=== PATIENT | female | born 1950 | race Caucasian/White ===

== ENCOUNTER 2017-03-21 10:48 | Day surgery (SDC) | payer BC ==
[2017-03-17 11:02] VITALS: BMI 20.1
[2017-03-21] MEDS ORDERED: PROPOFOL 20 ML ONE (11:27)
[2017-03-21 12:51] VITALS: TEMP 98.1
[2017-03-21 13:09] VITALS: BP 128/58; PULSE 67
--- NOTE | 2017-03-24 16:55 | PATH ---
Surgical Pathology Report Patient Name: EPIFANOI PETTY [facility]. Rec. #: [id number] /Age/Gender: 1950 (Age: 66) / F Account: [id number] Location: [facility]-ENDOSCOPY Taken: 03/21/2017 Received: 03/21/2017 Reported: 03/24/2017 Physicians: Pablo Pires M.D. Specimen(s) Received A: BX DUODENUM B: BX ANTRUM Clinical History GERD Gastritis Final Diagnosis A. DUODENUM, BIOPSY: DUODENAL MUCOSA WITH NO PATHOLOGIC FINDINGS. B. ANTRUM, BIOPSY: MODERATE CHRONIC GASTRITIS WITH INTESTINAL METAPLASIA. IMMUNOSTAIN IS NEGATIVE FOR H PYLORI ORGANISMS. Electronically Signed Annemarie Steel M.D. Gross Description A. Received in formalin, labeled "duodenum" is a giordano, irregular portion of soft tissue measuring 0.4 cm. in greatest dimension. The specimen is submitted in toto in one cassette. B. Received in formalin, labeled "antrum" are 2 giordano, irregular portions of soft tissue measuring 0.4 and 0.5 cm. in greatest dimension. The specimens are submitted in toto in one cassette. 03/23/2017 saudi03/23/2017
== END 2017-03-21 13:40 | disposition home or self-care (01) ==
LOC: FASU-ENDO 10:48
PROVIDERS: ATTEND Internal Medicine Gastroenterology
PROC: 0DB98ZX Excision of Duodenum, Via Natural or Artificial Opening Endoscopic, Diagnostic (ICD-10-PCS; principal; 2017-03-21 12:00)
PROC: 0DB68ZX Excision of Stomach, Via Natural or Artificial Opening Endoscopic, Diagnostic (ICD-10-PCS; 2017-03-21 12:00)
DX: K29.50 Unspecified chronic gastritis without bleeding (principal)
CPT/HCPCS: 88305-TC; 88342-TC

== ENCOUNTER 2020-03-09 20:09 | Emergency (ER) | payer BC ==
[2020-03-09 20:13] VITALS: BP 154/63; PULSE 64; TEMP 97.8; BMI 21.9
[2020-03-09] MEDS ORDERED: ACETAMINOPHEN 325 MG TABLET (FP) ONE (21:12)
[2020-03-09] MEDS ORDERED: ACETAMINOPHEN 500 MG TABLET (FP) PO ONE (21:13)
--- NOTE | 2020-03-09 21:13 | PDOC ---
Documentation entered by Mane Fang SCRIBE, acting as scribe for Radha Rivera MD. Radha Rivera MD: This documentation has been prepared by the Leoncio corona Angel, SCRIBE, under my direction and personally reviewed by me in its entirety. I confirm that the documentation accurately reflects all work, treatment, procedures, and medical decision making performed by me. History of Present Illness - General Chief Complaint: Injury Stated Complaint: right ankle injury History Source: Patient Exam Limitations: No Limitations - History of Present Illness Initial Comments: 03/09/20 20:26 The patient is a 69 year old female who presents to the ED with a swollen ankle after a fall today. The patient states she tripped on a step and twisted her right ankle. The patient states she is able to bear weight and walk on it. Patient denies any previous injuries to her right ankle or any other complaints. Assessment and plan: This is a 69-year-old female who comes in complaining of twisted her ankle. Ankle is moderately swollen. X-rays were done that were read by me showing a bimalleolar fracture with some mild disruption of the mortise. Neurovascular is intact. Patient was put in a sugar tong splint using OCL material and patient was referred to an orthopedist. Past History - Medical History Allergies/Adverse Reactions: Allergies Allergy/AdvReac Type Severity Reaction Status Date / Time No Known Drug Allergies Allergy Verified 03/17/17 11:02 Home Medications: Ambulatory Orders Calcium Carbonate/Vitamin D3 [Calcium 600 + Vit D 800 Tab] 1 each PO DAILY 03/12/16 Multivitamins [Tab-A-Vit -] 1 tab PO DAILY 03/12/16 Ranitidine HCl [Zantac] 150 mg PO PRN PRN 03/17/17 Anemia: No Asthma: No Cancer: No Cardiac Disorders: No CVA: No COPD: No CHF: No Dementia: No Diabetes: No GI Disorders: Yes (OCCASIONAL ACID REFLUX) Disorders: No HTN: No Hypercholesterolemia: No Liver Disease: No Seizures: No Thyroid Disease: No - Surgical History Abdominal Surgery: Yes (OPEN A/P) Appendectomy: Yes (1968- OPEN) Cardiac Surgery: No Cholecystectomy: No Lung Surgery: No Neurologic Surgery: No Orthopedic Surgery: Yes (RIGHT KNEE SURGERY 1989) - Psycho-Social/Smoking History Smoking History: Never smoked Have you smoked in the past 12 months: No Information on smoking cessation initiated: No - Substance Abuse Hx (Audit-C & DAST Scrn) How often the patient has a drink containing alcohol: Monthly or less Number of drinks the patient has on a typical day: 1 or 2 How often the patient has six or more drinks on one occasion: Never Score: In Men: 4 or > Positive; In Women: 3 or > Positive: 1 Screen Result (Pos requires Nsg. Audit-10AR): Negative In the last yr the pt used illegal drug/Rx for NonMed reason: No Score: Yes response is considered Positive: 0 Screen Result (Positive result requires Nsg. DAST-10): Negative Review of Systems - Review of Systems Able to Perform ROS?: Yes Comments:: 03/09/20 20:27 General: No fevers or chills, no weakness, no weight loss HEENT: No change in vision. No sore throat. No ear pain CardioVascular: No chest pain or shortness of breath Respiratory:No cough, or wheezing. Gastrointestinal: no nausea, vomiting, diarrhea or constipation, No rectal bleeding Genitourinary: No dysuria, hematuria, or frequency Musculoskeletal: +RLE swelling/tenderness. Neurologic: No headache, vertigo, dizziness or loss of consciousness Psychiatric: nor depression Skin: No rashes or easy bruising Endocrine: no increased thirst or abnormal weight change Allergic: no skin or latex allergy All other systems reviewed and normal *Physical Exam - Vital Signs Last Vital Signs Temp Pulse Resp BP Pulse Ox 97.8 F 64 18 154/63 98 03/09/20 20:10 03/09/20 20:10 03/09/20 20:10 03/09/20 20:10 03/09/20 20:10 - Physical Exam 03/09/20 20:29 GENERAL: The patient is awake, alert, and fully oriented, in no acute distress. HEAD: Normal with no signs of trauma. EYES: Pupils equal, round and reactive to light, extraocular movements intact, sclera anicteric, conjunctiva clear. EXTREMITIES: +Moderate swelling of the lateral malleolus of the right ankle. No tenderness on palpation to the base of the 5 metatarsal. Neurovascular intact. NEUROLOGICAL: Normal speech, normal gait. PSYCH: Normal mood, normal affect. SKIN: Warm, Dry, normal turgor, no rashes or lesions noted. Discharge - Discharge Information Problems reviewed: Yes Clinical Impression/Diagnosis: Bimalleolar fracture of right ankle Condition: Stable Disposition: HOME - Admission No - Follow up/Referral Referrals: Garfield Pickens MD [Staff Physician] - - Patient Discharge Instructions Additional Instructions: Call Dr. Pickens in the morning and get an appointment to follow-up let him know that you were in the ER and have a bimalleolar fracture of the ankle. Tylenol or Motrin as needed for pain. Wear the splint do not take it off and use your crutches no weightbearing until you have seen the orthopedist Return to the emergency department immediately with ANY new, persistent or worsening symptoms. Continue any medications as previously prescribed by your physician. You should follow up with your primary doctor as soon as possible regarding today's emergency department visit. . Please make sure your doctor reviews the results of your emergency evaluation. Thank you for coming to the Emergency Department today for your care. It was a pleasure to see you today. Please note that your evaluation is INCOMPLETE until you follow-up with your doctor. - Post Discharge Activity
== END 2020-03-09 21:23 | disposition home or self-care (01) ==
LOC: FER 20:09
DX: S82.841A Displaced bimalleolar fracture of right lower leg, initial encounter for closed fracture (principal)
CPT/HCPCS: 73610-TC-RT-FY; 99283-25

== ENCOUNTER 2020-03-24 05:59 | Day surgery (SDC) | payer BC ==
[2020-03-21 13:37] VITALS: BMI 21.5
[2020-03-24] MEDS ORDERED: ROPIVACAINE HCL 0.5% 30ML VIAL ONE (07:20)
[2020-03-24] MEDS ORDERED: MIDAZOLAM HCL 2 MG/2 ML SINGLE DOSE VIAL ONE ×2 (07:20→08:10)
--- NOTE | 2020-03-24 07:48 | OP ---
Operative Note - Note: Operative Date: 03/24/20 Pre-Operative Diagnosis: Right ankle fracture Operation: Right ankle ORIF Post-Operative Diagnosis: Same as Pre-op Surgeon: Garfield Pickens Transition Mgr Rn: aKssi Gonzalez Anesthesia: General Operative Report Dictated: Yes
[2020-03-24] MEDS ORDERED: PROPOFOL 20 ML ONE ×3 (08:10)
[2020-03-24] MEDS ORDERED: KETOROLAC TROMETHAMINE 30 MG/1 ML VIAL ONE (08:10)
[2020-03-24] MEDS ORDERED: ceFAZolin SODIUM 1 GM VIAL ONE (08:10)
[2020-03-24] MEDS ORDERED: ePHEDrine SULFATE 50 MG/1 ML AMPULE ONE (08:10)
[2020-03-24] MEDS ORDERED: ONDANSETRON 4 MG/2 ML VIAL ONE (08:10)
[2020-03-24] MEDS ORDERED: DEXAMETHASONE SOD PHOSPHATE 4 MG/1 ML VIAL ONE (08:10)
[2020-03-24] MEDS ORDERED: SUCCINYLCHOLINE CHLORIDE 200 MG/10 ML SYRINGE ONE (08:10)
[2020-03-24] MEDS ORDERED: TRANEXAMIC ACID 1000 MG/10 ML VIAL ONE (09:36)
[2020-03-24] MEDS ORDERED: ONDANSETRON 4 MG/2 ML VIAL IVPUSH PRN (10:31)
[2020-03-24] MEDS ORDERED: PROMETHAZINE HCL 25 MG/1 ML VIAL IVPUSH PRN (10:31)
[2020-03-24] MEDS ORDERED: oxyCODONE HCL 5 MG TABLET PO PRN ×2 (10:31)
[2020-03-24 17:21] VITALS: BP 132/62; PULSE 59; TEMP 98
--- NOTE | 2020-03-27 11:42 | OP ---
DATE OF OPERATION: 03/24/2020 PREOPERATIVE DIAGNOSIS: Right ankle bimalleolar fracture. POSTOPERATIVE DIAGNOSIS: Right ankle bimalleolar fracture. PROCEDURE: Right ankle open reduction, internal fixation. SURGEON: Garfield Pickens MD MACHINE SIZER: RICHARD Chahal, whose skillful assistance was necessary for the safe and timely performance of this procedure. Ms. Gonzalez was able to provide limb positioning, retraction, assist in fracture reduction as well as the insertion of orthopedic fixation hardware. ANESTHESIA: General. POSTOPERATIVE CONDITION: Stable. COMPLICATIONS: None. IMPLANTS: Arthrex distal fibula plate with 2.7-mm distal locking and 3.5-mm locking and nonlocking proximal screws. Medially a 4.0 cannulated screw was used . INDICATION: This is a pleasant 70-year-old female who had suffered a trip and fall. She was found to have a bimalleolar ankle fracture. She was initially treated with cast immobilization as she has significant fracture blisters on the lateral aspect of her ankle over her fracture site. Treatment options were discussed including nonoperative versus operative management. Given the unstable mortise, it was recommended that operative care be performed. Operative risks were reviewed including bleeding, infection, neurovascular injury, need for further surgery, postoperative pain and stiffness, nonunion, malunion, hardware failure or cut-out. We discussed medical issues such as heart attack, stroke, DVT, PE and . I addressed the use of perioperative antibiotics and DVT prophylaxis. I addressed all the patient's questions and concerns. She voiced understanding and elected to proceed. PROCEDURE: Patient was brought to the operating room, where anesthesia was administered. She had previously been given the preoperative block in the holding area. The patient was then prepped and draped in the usual sterile fashion. Preoperative dose of antibiotics was given, and the usual timeout procedure was performed. It should be noted that the blisters had self-drained by the time of the procedure. An incision was now planned out over the distal fibula. The limb was exsanguinated. Tourniquet was inflated to 250 mmHg. Incision was now carried down through skin, through subcutaneous tissue. Blunt spreading was used to expose the fibula. The fracture site was identified. The was impacted onto itself and displaced. A Dixon was inserted into the fracture site, and the distal fragment was disimpacted and pushed into an anatomic reduction. A small gap was present where the impaction occurred. The fracture site was now examined both visually and fluoroscopically, and fracture reduction was acceptable. A periosteal elevator was used to create a place for the plate to lie on . The plate was now on the bone and held in place initially using a 3.5 cortical screw more proximally. After finding the bone quality was soft, additional locking screws were inserted more proximally to secure the plate to the bone. Distally, 2.7 screws were used to secure the distal fragment. After inserting the screws through the plate, fracture reduction and hardware placement were verified visually and fluoroscopically. Both were satisfactory. The wound was now packed. Attention was turned medially. Given that there was posterior displacement of the medial fragment, a curvilinear incision was made over the medial fragment. There was a tortuous course to the saphenous vein, and 2 small branches were ligated more posteriorly subcutaneously to allow exposure of the fracture site. The periosteum was then incised and elevated both anteriorly and posteriorly to expose the fracture site. The distal fragment was small and significantly comminuted. The periosteum was now folded out of the fracture site, and a pointed reduction clamp was used to reduce the medial and lateral fragment. Given its small size, it was felt 1 screw was satisfactory. The K-wire was placed and verified fluoroscopically. The near cortex was overdrilled; and a -mm screw was inserted, securing the fragment into place. At this point, the entire construct was examined both visually and fluoroscopically. Both fracture reduction and hardware placement were satisfactory. An external rotation stress test was performed, and no instability was noted. Both wounds were copiously irrigated. The tourniquet was let down, and any residual bleeding was cauterized. The deep tissue was now approximated using 0 Vicryl. Subcutaneous tissue was approximated using 2-0 Vicryl. The skin was closed with 3-0 nylon. Sterile dressings were placed. The patient was placed into a well-padded, short-leg cast which was then bivalved. She was transferred to the recovery room in stable condition. Luiza [id number]
== END 2020-03-24 18:33 | disposition home or self-care (01) ==
LOC: FASU 05:59
PROVIDERS: ATTEND Orthopaedic Surgery Sports Medicine
PROC: 0QSG04Z Reposition Right Tibia with Internal Fixation Device, Open Approach (ICD-10-PCS; 2020-03-24)
PROC: 0QSJ04Z Reposition Right Fibula with Internal Fixation Device, Open Approach (ICD-10-PCS; principal; 2020-03-24 08:21)
DX: S82.841A Displaced bimalleolar fracture of right lower leg, initial encounter for closed fracture (principal); W01.0XXA Fall on same level from slipping, tripping and stumbling without subsequent striking against object, initial encounter; Y93.9 Activity, unspecified; Y92.9 Unspecified place or not applicable
CPT/HCPCS: 73610-TC-RT-FY; 94760

== ENCOUNTER 2020-11-20 07:43 | Day surgery (SDC) | payer BC ==
[2020-11-18 11:18] VITALS: BMI 21.9
[2020-11-20] MEDS ORDERED: PROPOFOL 20 ML ONE (09:27)
[2020-11-20 09:52] VITALS: TEMP 97.8
[2020-11-20 10:33] VITALS: BP 110/71; PULSE 64
== END 2020-11-20 10:25 | disposition home or self-care (01) ==
LOC: FASU-ENDO 07:43
PROVIDERS: ATTEND Internal Medicine Gastroenterology
PROC: 0DB78ZX Excision of Stomach, Pylorus, Via Natural or Artificial Opening Endoscopic, Diagnostic (ICD-10-PCS; 2020-11-20)
PROC: 0D747ZZ Dilation of Esophagogastric Junction, Via Natural or Artificial Opening (ICD-10-PCS; 2020-11-20)
PROC: 0DB98ZX Excision of Duodenum, Via Natural or Artificial Opening Endoscopic, Diagnostic (ICD-10-PCS; principal; 2020-11-20 09:20)
DX: K29.50 Unspecified chronic gastritis without bleeding (principal); K22.2 Esophageal obstruction; R13.10 Dysphagia, unspecified; R12 Heartburn; K44.9 Diaphragmatic hernia without obstruction or gangrene
CPT/HCPCS: 88305-TC; 88342-TC